=== PATIENT | female | born 1990 | race African-American/Black ===

== ENCOUNTER 2016-11-12 01:55 | Observation (INO) | payer MEDICAID ==
[~2016-11-12] VITALS: Ht 152.4 cm; Wt 71.7 kg
[2016-11-12] MEDS ORDERED: LACTATED RINGERS 1,000 ML IV SCH (02:45)
[2016-11-12 02:46] LABS: CLARITY URINE CLEAR (CLEAR); COLOR URINE YELLOW (YELLOW); GLUCOSE URINE NEGATIVE (NEGATIVE); KETONES URINE NEGATIVE (NEGATIVE); LEUKOCYTE ESTERASE URINE NEGATIVE (NEGATIVE); NITRITE URINE NEGATIVE (NEGATIVE); OCCULT BLOOD URINE NEGATIVE (NEGATIVE); PROTEIN URINE NEGATIVE (NEGATIVE); SPECIFIC GRAVITY URINE 1.008 (1.005-1.030); UROBILINOGEN URINE 0.2 E.U./dL (0.2-1.0)
[2016-11-12] MEDS ORDERED: TERBUTALINE SULFATE 1MG/ML VIAL SUBCUT PRN (03:00)
[2016-11-12] MEDS ORDERED: CEFAZOLIN 2,000 MG in DEXT 5% WATER 100 ML IV SCH (03:00)
[2016-11-12] MEDS ORDERED: PREN-88 PO (04:22)
== END 2016-11-12 04:50 | disposition home or self-care (01) ==
LOC: L&D 01:55
PROVIDERS: ADMIT Obstetrics & Gynecology; ATTEND Obstetrics & Gynecology
DX: O26.892 Other specified pregnancy related conditions, second trimester (principal); R10.30 Lower abdominal pain, unspecified; Z3A.26 26 weeks gestation of pregnancy
CPT/HCPCS: 81003; 82731; 96361; 96365; 96372; 99281; G0378; J0690; J3105; J7120; 96360; J7060

== ENCOUNTER 2017-01-21 08:02 | Observation (INO) | payer MEDICAID ==
[~2017-01-21] VITALS: Ht 152.4 cm; Wt 75.7 kg
[~2017-01-21 08:02] MED LIST: PREN-88 PO
[2017-01-21 08:58] VITALS: BP 107/66
== END 2017-01-21 09:13 | disposition home or self-care (01) ==
LOC: L&D 08:02
PROVIDERS: ADMIT Obstetrics & Gynecology; ATTEND Obstetrics & Gynecology
DX: O26.893 Other specified pregnancy related conditions, third trimester (principal); R10.9 Unspecified abdominal pain; N89.8 Other specified noninflammatory disorders of vagina; O62.9 Abnormality of forces of labor, unspecified; Z3A.36 36 weeks gestation of pregnancy
CPT/HCPCS: 99281; G0378

== ENCOUNTER 2017-05-27 08:35 | Emergency (ER) | payer MEDICAID ==
[~2017-05-27] VITALS: Ht 152.4 cm; Wt 70.0 kg
[2017-05-27 11:15] LABS: BASOPHILS % 0.8 % (0.0-2.0); HEMATOCRIT. 35.3 % (36.0-48.0); HEMOGLOBIN. 11.9 g/dL (12.0-16.0); LYMPHOCYTES % 48.5 % (20.0-50.0); MEAN CORPUSCULAR HEMOGLOBIN 30.3 pg (28.0-32.0); MEAN CORPUSCULAR VOLUME 90.1 fL (81.0-99.0); MONOCYTES % 11.7 % (2.0-8.0); PLATELET 225 x1000/uL (130-400); RED BLOOD CELL COUNT 3.92 mill/uL (4.2-5.4); RED CELL DISTRIBUTION WIDTH 14.9 % (11.6-14.6)
[2017-05-27 11:28] LABS: CLARITY URINE CLOUDY (CLEAR); COLOR URINE YELLOW (YELLOW); GLUCOSE URINE NEGATIVE (NEGATIVE); KETONES URINE NEGATIVE (NEGATIVE); LEUKOCYTE ESTERASE URINE NEGATIVE (NEGATIVE); NITRITE URINE NEGATIVE (NEGATIVE); OCCULT BLOOD URINE NEGATIVE (NEGATIVE); PH URINE 5.5 (4.5-8.0); PROTEIN URINE NEGATIVE (NEGATIVE); SPECIFIC GRAVITY URINE 1.028 (1.005-1.030)
[2017-05-27 11:33] LABS: CARBON DIOXIDE 23 mEq/L (21-32); CHLORIDE 111 mEq/L (98-107)
[2017-05-27 11:51] LABS: *AMPHETAMINES SCREEN URINE NEGATIVE (NEGATIVE); *BARBITURATES SCREEN URINE NEGATIVE (NEGATIVE); *BENZODIAZEPINES SCREEN URINE NEGATIVE (NEGATIVE); *COCAINE SCREEN URINE NEGATIVE (NEGATIVE); CANNABINOID URINE SCREEN NEGATIVE (NEGATIVE); METHADONE URINE SCREEN NEGATIVE (NEGATIVE); OPIATES URINE SCREEN NEGATIVE (NEGATIVE); PHENCYCLIDINE URINE SCREEN NEGATIVE (NEGATIVE)
[2017-05-27 12:49] VITALS: BP 136/89
== END 2017-05-27 12:54 | disposition home or self-care (01) ==
LOC: ER 08:35
DX: J45.901 Unspecified asthma with (acute) exacerbation (principal); R10.9 Unspecified abdominal pain; Z91.013 Allergy to seafood
CPT/HCPCS: 36415; 80053; 80305; 81001; 81025; 83690; 85025; 93005; 99285

== ENCOUNTER 2018-02-01 20:34 | Observation (INO) | payer MEDICAID ==
[~2018-02-01] VITALS: Ht 152.4 cm; Wt 77.1 kg
[2018-02-01] MEDS ORDERED: ONDANSETRON HCL 4MG/2ML VIAL IV ONE (21:30)
[2018-02-01] MEDS ORDERED: DEXT 5%/LACTATED RINGERS 1,000 ML IV ONE (21:30)
[2018-02-01 22:58] LABS: CLARITY URINE CLOUDY (CLEAR); COLOR URINE YELLOW (YELLOW); KETONES URINE NEGATIVE (NEGATIVE); LEUKOCYTE ESTERASE URINE TRACE (NEGATIVE); NITRITE URINE NEGATIVE (NEGATIVE); OCCULT BLOOD URINE NEGATIVE (NEGATIVE); PROTEIN URINE NEGATIVE (NEGATIVE); SPECIFIC GRAVITY URINE 1.011 (1.005-1.030)
== END 2018-02-02 00:15 | disposition home or self-care (01) ==
LOC: L&D 20:34
PROVIDERS: ADMIT Obstetrics & Gynecology; ATTEND Obstetrics & Gynecology
DX: O21.2 Late vomiting of pregnancy (principal); Z3A.30 30 weeks gestation of pregnancy
CPT/HCPCS: 76805; 76818; 81003; 96374; 99281; G0378; J2405; 96360

== ENCOUNTER 2018-02-19 08:45 | Observation (INO) | payer MEDICAID ==
[~2018-02-19] VITALS: Ht 149.9 cm; Wt 80.7 kg
[2018-02-19] MEDS ORDERED: ACETAMINOPHEN 500MG TABLET PO NR (09:30)
[2018-02-19] MEDS ORDERED: DEXT 5%/LACTATED RINGERS 1,000 ML IV ONE (09:30)
[2018-02-19] MEDS ORDERED: ONDANSETRON HCL 4MG/2ML VIAL IV NR (09:30)
== END 2018-02-19 11:12 | disposition home or self-care (01) ==
LOC: OB TRIAGE 08:45 → L&D 09:00
PROVIDERS: ADMIT Obstetrics & Gynecology; ATTEND Obstetrics & Gynecology
DX: O26.893 Other specified pregnancy related conditions, third trimester (principal); R10.9 Unspecified abdominal pain; Z3A.30 30 weeks gestation of pregnancy
CPT/HCPCS: 82731; 96374; 99281; G0378; J2405; J7120; 96360; 96361

== ENCOUNTER 2018-03-25 02:36 | Observation (INO) | payer MEDICAID ==
[~2018-03-25] VITALS: Ht 149.9 cm; Wt 77.1 kg
[2018-03-25] MEDS ORDERED: ALBU05 NEB (03:33)
[2018-03-25] MEDS ORDERED: TERBUTALINE SULFATE 1MG/ML VIAL SUBCUT SCH (03:45)
[2018-03-25] MEDS ORDERED: BUTORPHANOL TARTRATE 2 MG/ML VIAL IV ONE (04:00)
[2018-03-25] MEDS: LACTATED RINGERS 1,000 ML IV SCH ×2 (04:45→06:15)
[2018-03-25 04:55] VITALS: BP 107/55
[2018-03-25 05:43] LABS: CLARITY URINE CLEAR (CLEAR); COLOR URINE YELLOW (YELLOW); KETONES URINE 1+ (NEGATIVE); LEUKOCYTE ESTERASE URINE TRACE (NEGATIVE); NITRITE URINE NEGATIVE (NEGATIVE); OCCULT BLOOD URINE NEGATIVE (NEGATIVE); PH URINE 6.5 (4.5-8.0); PROTEIN URINE NEGATIVE (NEGATIVE); SPECIFIC GRAVITY URINE 1.003 (1.005-1.030); UROBILINOGEN URINE 0.2 E.U./dL (0.2-1.0)
== END 2018-03-25 06:55 | disposition home or self-care (01) ==
LOC: L&D 02:36 → UNDOADMOB 02:36
PROVIDERS: ADMIT Specialist; ATTEND Specialist
DX: O62.9 Abnormality of forces of labor, unspecified (principal); O99.513 Diseases of the respiratory system complicating pregnancy, third trimester; J45.909 Unspecified asthma, uncomplicated; Z3A.36 36 weeks gestation of pregnancy
CPT/HCPCS: 76770; 76805; 76818; 81003; 96361; 96372; 96374; G0378; J0595; J3105; 99281

== ENCOUNTER 2018-03-25 07:04 | Emergency (ER) | payer MEDICAID ==
[~2018-03-25] VITALS: Ht 149.9 cm; Wt 78.0 kg
[~2018-03-25 07:04] MED LIST changes: +ALBU05 NEB
[2018-03-25 09:06] LABS: CHLORIDE 109 mEq/L (98-107)
[2018-03-25 09:08] LABS: PARTIAL THROMBOPLASTIN TIME 31.9 sec (23.4-31.0); PROTHROMBIN TIME 10.5 sec (9.4-11.6)
[2018-03-25 09:27] LABS: HEMATOCRIT. 27.4 % (36.0-48.0); HEMOGLOBIN. 9.2 g/dL (12.0-16.0); MEAN CORPUSCULAR HEMOGLOBIN 31.8 pg (28.0-32.0); MEAN CORPUSCULAR VOLUME 94.4 fL (81.0-99.0); MEAN PLATELET VOLUME 7.4 fl (7.4-10.4); PLATELET 228 x1000/uL (130-400); RED CELL DISTRIBUTION WIDTH 12.9 % (11.6-14.6)
[2018-03-25] MEDS ORDERED: SODIUM CHLORIDE 0.9% 1,000 ML IV ONE (09:45)
[2018-03-25 11:09] LABS: PLATELET ESTIMATE NORMAL
[2018-03-25 11:50] VITALS: BP 101/66
== END 2018-03-25 11:57 | disposition left against medical advice (07) ==
LOC: ER 07:49
DX: R07.89 Other chest pain (principal); R04.2 Hemoptysis; R05 Cough; R09.81 Nasal congestion; J45.909 Unspecified asthma, uncomplicated; Z86.718 Personal history of other venous thrombosis and embolism; Z91.013 Allergy to seafood
CPT/HCPCS: 36415; 71045; 80053; 81025; 85025; 85610; 85730; 93005; 96360; 96361; 96372; 99285; J7030; Z7610; 99281